=== PATIENT | female | born 1950 | race Caucasian/White ===

== ENCOUNTER 2019-01-07 20:16 | Emergency (ER) | payer MEDICARE, OTHER ==
[~2019-01-07] VITALS: Ht 162.6 cm; Wt 93.0 kg
[~2019-01-07 20:16] MED LIST: BACTDS PO; LOSA25TA12 PO; METF500T24 PO
[2019-01-07 20:30] VITALS: Ht 162.6 cm; Wt 93.0 kg
[2019-01-08] MEDS ORDERED: DIPHTH/TET/ACEL PERTUSS (ADULT) 0.5 ML VIAL IM* ONE (04:00)
--- NOTE | 2019-01-08 04:12 | ERD ---
ER Documentation Chief Complaint Chief Complaint left thumb laceration x 1 hour ago with slicer HPI 68-year-old female presents here to emergency department for complaints of skin avulsion laceration on the left thumb after accidentally cutting it with a mandolin slicer last night. Was bleeding, controlled at this time. Complains of pain burning pain 4/10 scale, not better or worse with anything. Patient diabetic. Patient denies any limitation of movement of the joints. Denies any numbness or tingling. Tdap given 2 years ago. ROS All systems reviewed and are negative except as per history of present illness. Medications Home Meds Active Scripts Sulfamethoxazole-Trimethoprim* (Bactrim* DS) 800-160 Mg Tab, 1 TAB PO BID for 7 Days, TAB Prov:GOVIND ARREOLA [employer] 11/13/15 Reported Medications Metformin Hcl* (Metformin Hcl*) Unknown Strength Tablet, PO WITH MEALS, #90 TAB 11/13/15 Losartan Potassium* (Losartan Potassium*) Unknown Strength Tablet, PO DAILY, TAB 11/13/15 Allergies Allergies: Coded Allergies: Cephalexin (Verified Allergy, Unknown, 06/13/08) PMhx/Soc History of Surgery: Yes (gallbladder surgery) Hx Cardiac Disorders: Yes (htn, cholesterol) Hx Alcohol Use: Yes (occasional glass of wine) Hx Substance Use: No Hx Tobacco Use: Yes Smoking Status: Light tobacco smoker FmHx Family History: No diabetes, No coronary disease, No other Physical Exam Vitals Vital Signs Date Temp Pulse Resp B/P (MAP) Pulse Ox O2 O2 Flow FiO2 Time Delivery Rate 01/07/19 98.2 76 18 150/68 97 20:30 (95) Physical Exam GENERAL: The patient is well developed and appropriate for usual state of health, in no apparent distress. CHEST: Clear to auscultation bilaterally. There are no rales, wheezes or rhonchi. HEART: Regular rate and rhythm. No murmurs, clicks, rubs or gallops. No S3 or S4. ABDOMEN: Soft, nontender and nondistended. Good bowel sounds. No rebound or guarding. No gross peritonitis. No gross organomegaly or masses. No Chew sign or McBurney point tenderness. BACK: No midline or flank tenderness. EXTREMITIES: Equal pulses bilaterally. There is no peripheral clubbing, cyan osis or edema. No focal swelling or erythema. Full range of motion. Grossly neurovascularly intact. NEURO: Alert and oriented. Cranial nerves 2-12 intact. Motor strength in all 4 extremities with 5/5 strength. Sensation grossly intact. Normal speech and gait. SKIN: 1 cm skin avulsion noted in the left thumb area, bleeding controlled, no other open wounds noted. Good movement of the joint affected. There is no apparent rash or petechia. The skin is warm and dry. HEMATOLOGIC AND LYMPHATIC: There is no evidence of excessive bruising or lymphedema. No gross cervical, axillary, or inguinal lymphadenopathy. Results 24 hrs Current Medications Medications Dose Sig/Blaire Start Time Status Last (Trade) Ordered Route PRN Stop Time Admin Dose Reason Admin Diphtheria/ 0.5 ml ONCE ONCE 01/08/19 DC Tetanus/Acell IM* 04:00 Pertussis 01/08/19 04:01 (Adacel) Tdap not indicated, had one 2 years ago Procedures/MDM Medical Decision Making: Patient's pain is most likely consistent with skin avulsion laceration, repair not indicated at this time, bleeding is controlled at this time. No joint involvement noted. There is no suspicion for neurovascular compromise. Patient has intact sensation and circulation of the affected extremity. There is low suspicion for septic arthritis. Patient does not have any fever. Radiology exams not indicated at this time. Disposition: Home. Patient is given prescription for ibuprofen for pain, Bactrim to prevent infection. Patient was advised to elevate the affected area and apply ice on affected area. Patient was advised that if symptoms are worse, numbness, tingling, high fever, unable to move joint, worsening symptoms, to return to emergency department immediately. Otherwise, patient is advised to follow up with the primary care doctor in 5-7 days for reevaluation of symptoms. Disclaimer: Inadvertent spelling and grammatical errors are likely due to EHR/dictation software use and do not reflect on the overall quality of patient care. Also, please note that the electronic time recorded on this note does not necessarily reflect the actual time of the patient encounter. Departure Diagnosis: Primary Impression: Thumb laceration Encounter type: initial encounter Damage to nail status: without damage Foreign body presence: without foreign body Laterality: unspecified laterality Qualified Codes: S61.019A - Laceration without foreign body of unspecified thumb without damage to nail, initial encounter Condition: Stable Additional Instructions: atient is given prescription for ibuprofen for pain, Bactrim to prevent infection. Patient was advised to elevate the affected area and apply ice on affected area. Patient was advised that if symptoms are worse, numbness, tingling, high fever, unable to move joint, worsening symptoms, to return to emergency department immediately. Otherwise, patient is advised to follow up with the primary care doctor in 5-7 days for reevaluation of symptoms. GOVIND ARREOLA NP Jan 08, 2019 04:12
[2019-01-08] MEDS ORDERED: IBUP-1542 PO (04:13)
[2019-01-08] MEDS ORDERED: SULF1TAB31 PO (04:13)
[2019-01-08 04:47] VITALS: BP 182/80; PULSE 76; RESP 18
== END 2019-01-08 05:13 | disposition home or self-care (01) ==
LOC: FTE 20:16
DX: S61.022A Laceration with foreign body of left thumb without damage to nail, initial encounter (principal); I10 Essential (primary) hypertension; E11.9 Type 2 diabetes mellitus without complications; W26.8XXA Contact with other sharp object(s), not elsewhere classified, initial encounter; Y92.9 Unspecified place or not applicable; Z79.84 Long term (current) use of oral hypoglycemic drugs
CPT/HCPCS: 90715; 99283